=== PATIENT | male | born 1980 | race Caucasian/White ===

== ENCOUNTER 2020-02-19 11:47 | Emergency (ER) | payer OTHER ==
[~2020-02-19] VITALS: Ht 182.9 cm; Wt 113.9 kg
--- NOTE | 2020-02-19 12:15 | NUR ---
PT TO ED C/O BACK PAIN THAT WRAPS AROUND FRONT OF R LEG. TEARFUL WHEN MOVING. GIVEN ICE PACK. AWAITING MD.
[2020-02-19] MEDS ORDERED: HYDROmorphone 1 MG/ML, 1ML INJ ONE (12:54)
[2020-02-19] MEDS ORDERED: KETOROLAC 60 MG/2 ML ONE (12:54)
[2020-02-19] MEDS ORDERED: HYDROmorphone 1 MG/ML, 1ML INJ IM ONE (13:00)
[2020-02-19] MEDS ORDERED: KETOROLAC 30 MG/1 ML IM ONE (13:00)
--- NOTE | 2020-02-19 13:15 | NUR ---
MEDS PER SEP. CALL AGOSTO IN REACH.
--- NOTE | 2020-02-19 14:04 | NUR ---
ct restuls pending. as
[2020-02-19 14:57] VITALS: BP 131/55
== END 2020-02-19 14:59 | disposition home or self-care (01) ==
LOC: ED 14:11
DX: M54.41 Lumbago with sciatica, right side (principal); M62.830 Muscle spasm of back; Z87.891 Personal history of nicotine dependence
CPT/HCPCS: 72148; 96372; 99284; J1170; J1885; J7512

== ENCOUNTER 2020-12-07 01:34 | Emergency (ER) | payer OTHER ==
[~2020-12-07] VITALS: Ht 182.9 cm; Wt 107.4 kg
--- NOTE | 2020-12-07 02:27 | NUR ---
PT COMPLIANT OF LEFT ARM WEAKNESS, PT STATED HE HAS A HISTORY OF HERNIATED DISCS L2/L3 WITH WHICH HE IS IN PHYSICAL THERAPY FOR CURRENTLY. PT PLACED ON MONITORS, STRENGTH IN ALL EXTREMITIES 5/5. PT TAKEN TO CT.
[2020-12-07 02:43] LABS: BASOPHILS % (AUTO) 1 % (0-1); EOSINOPHILS % (AUTO) 3 % (1-7); LYMPHOCYTES % (AUTO) 28 % (22-44); MEAN CORPUSCULAR HGB CONC 34.5 g/dL (33.2-36.2); MEAN PLATELET VOLUME 7.7 fL (7.4-10.4); MONOCYTES % (AUTO) 10 % (2-9); NEUTROPHILS % (AUTO) 59 % (42-75); PLATELET COUNT 280 x10^3/uL (130-400); RED BLOOD COUNT 5.14 x10^6/uL (4.38-5.82); RED CELL DISTRIBUTION WIDTH 14.3 % (9.4-14.8)
[2020-12-07 02:52] LABS: MD NO
[2020-12-07 02:56] LABS: ALANINE AMINOTRANSFERASE 44 U/L (12-78); ALBUMIN 4.1 g/dL (3.4-5.0); ANION GAP 4 mmol/L (5-15); CALCIUM 9.5 mg/dL (8.5-10.1); CHLORIDE 106 mmol/L (98-107); CREATININE 1.72 mg/dL (0.7-1.3)
[2020-12-07 03:00] LABS: ALKALINE PHOSPHATASE 32 U/L (45-117); BILIRUBIN,TOTAL 1.2 mg/dL (0.2-1.0); TOTAL PROTEIN 7.4 g/dL (6.4-8.2); TROPONIN I < 0.015 ng/mL (0.000-0.045)
[2020-12-07 04:03] VITALS: BP 131/86
--- NOTE | 2020-12-07 04:08 | NUR ---
PT WAS DISCHARGED WITH INSTRUCTIONS ON MUSCLE SPAMS AND TO FOLLOW UP WITH PRIMARY. PT VERBALIZED UNDERSTANDING, AND AMBULATED OUT WITH NO S&S OF DISTRESS.
== END 2020-12-07 04:12 | disposition home or self-care (01) ==
LOC: ED 03:55
DX: M62.838 Other muscle spasm (principal); R42 Dizziness and giddiness; R53.1 Weakness
CPT/HCPCS: 36415; 70450; 71045; 80053; 84484; 85025; 93005; 99285